=== PATIENT | male | born 1945 | race Asian ===

== ENCOUNTER 2016-10-28 07:02 | Day surgery (SDC) | payer MEDICARE, OTHER ==
[~2016-10-28 07:02] MED LIST: FENTANYL 250 MCG/5 ML AMP IV PRN; IV START KIT ONE; LACTATED RINGERS 1,000 ML IV SCH; LACTATED RINGERS 1,000 ML ONE; LIDOCAINE Viscous 2% 15 ML UDCUP PO PRN; MIDAZOLAM HCL 5 MG/5 ML VIAL IV PRN
[2016-10-28] MEDS ORDERED: FENTANYL 5 ML ONE (07:43)
[2016-10-28] MEDS ORDERED: MIDAZOLAM HCL 5 MG/5 ML VIAL ONE (07:43)
[2016-10-28] MEDS ORDERED: LIDOCAINE Viscous 2% 15 ML UDCUP ONE (07:43)
[2016-10-28 13:09] LABS: HELICOBACTER PYLORII DETECTION NEGATIVE (NEGATIVE)
--- NOTE | 2016-11-01 10:51 | SURGPATH ---
[facility] [address] [place] [address] Patient Name: GUILLERMO MOLINA MR#: [id number] : 1945 Gender: M Specimen #: [id number] Collected: 10/28/2016 Received: 10/29/2016 Reported: 11/01/2016 Submitting Phys: MOSES JONES Copy To Phys: [facility] Olena HENDERSON Clinical History / Pre-Operative Diagnosis: ANEMIA; EPIGASTRIC PAIN; MELENA; RECTAL BLEEDING; RULE OUT GIARDIA, CELIAC SPRUE AND GASTRITIS Specimen Source / Surgical Procedure Performed: #1-DUODENAL BIOPSY; #2-ANTRAL BIOPSY Interpretation: 1. DUODENUM, BIOPSY: - SMALL BOWEL MUCOSA SHOWING NO DIAGNOSTIC ABNORMALITIES. - NO EVIDENCE OF CELIAC DISEASE. - NO EVIDENCE OF SIGNIFICANT INFLAMMATION, VILLOUS BLUNTING, OR MALIGNANCY. 2. GASTRIC ANTRUM, BIOPSY: - MILD CHRONIC GASTRITIS. - NO MICROORGANISMS IDENTIFIED WITH ROUTINE STAINING. - NO EVIDENCE OF ACUTE INFLAMMATION, INTESTINAL METAPLASIA, OR MALIGNANCY. Electronically Signed Out Chris Griffin M.D., Ph.D. Gross Description: #1 The specimen is received in a formalin filled container labeled with the patient's name and "duodenal biopsy". A single alanis biopsy is 0.4 cm. Totally embedded in cassette #1. #2 The specimen is received in a formalin filled container labeled with the patient's name and "antral biopsy". A single alanis biopsy is 0.4 cm. Totally embedded in cassette #2. Beth Linton Microscopic Description: 1. Examination of multiple levels from the duodenum biopsy shows a single fragment of histologically unremarkable small bowel mucosa. The villous architecture is intact without evidence of blunting. There is no evidence of increased intraepithelial lymphocytes. There is no evidence of significant inflammation or malignancy. 2. Examination of multiple levels from the gastric antrum biopsy shows multiple fragments of gastric mucosa with expansion of the lamina propria by a mixed inflammatory cell infiltrate consisting of lymphocytes, plasma cells, and eosinophils. No neutrophils are seen. No microorganisms identified with routine staining. There is no evidence of intestinal metaplasia or malignancy. 1: [id number] 2: 42594 K29.50
== END 2016-10-28 09:05 | disposition home or self-care (01) ==
LOC: SDC 07:02
PROVIDERS: ATTEND Internal Medicine Gastroenterology
PROC: 0DB98ZX Excision of Duodenum, Via Natural or Artificial Opening Endoscopic, Diagnostic (ICD-10-PCS; principal; 2016-10-28)
PROC: 0DB68ZX Excision of Stomach, Via Natural or Artificial Opening Endoscopic, Diagnostic (ICD-10-PCS; 2016-10-28)
PROC: 0DJD8ZZ Inspection of Lower Intestinal Tract, Via Natural or Artificial Opening Endoscopic (ICD-10-PCS; 2016-10-28)
DX: K29.50 Unspecified chronic gastritis without bleeding (principal); K29.80 Duodenitis without bleeding; K64.1 Second degree hemorrhoids; Z87.11 Personal history of peptic ulcer disease; D64.9 Anemia, unspecified; Z87.891 Personal history of nicotine dependence; Z88.0 Allergy status to penicillin
CPT/HCPCS: 43239; 45378; 87081; J3010; J2250; A9270; J7120